=== PATIENT | female | born 2000 ===

== ENCOUNTER 2021-07-05 19:24 | Outpatient (CLI) | payer MEDICAID ==
[2021-07-05 20:24] VITALS: BP 107/59
[2021-07-05] MEDS ORDERED: LACTATED RINGERS 500 ML IV ONE (20:40)
== END 2021-07-05 21:14 | disposition home or self-care (01) ==
LOC: TRG 19:24 → APU 19:26 → TRG 21:14
PROVIDERS: ATTEND Obstetrics & Gynecology Gynecology
DX: Z34.92 Encounter for supervision of normal pregnancy, unspecified, second trimester (principal); Z3A.20 20 weeks gestation of pregnancy
CPT/HCPCS: 59025